=== PATIENT | female | born 1995 | race Hispanic/Latino ===

== ENCOUNTER → 2025-05-09 | Outpatient (CLI) | payer OTHER ==
[~2025-05-09] MED LIST: IOHEXOL-350 50ML VIAL IV ONE
--- NOTE | 2025-05-09 14:08 | HMCIMG ---
COMPARISON STUDY: None available. FLUOROSCOPY TIME: 0.9 minutes CONTRAST USED: 12mL of Omnipaque 350 FINDINGS: The cervical canal was attempted cannulation but there is obstruction.. Due to obstruction of the endometrial stripe and origin of the cervix by mass effect contrast was injected but contrast reflux into the vagina.. IMPRESSION: Acute obstructive lesion seen in the cervical opening and extending into the endometrial stripe..
== END ==
LOC: RAH 09:32
PROVIDERS: ATTEND Obstetrics & Gynecology
DX: N92.0 Excessive and frequent menstruation with regular cycle (principal); N94.6 Dysmenorrhea, unspecified
CPT/HCPCS: 74740; 84703; 36415; 58340; Q9967; C1726